=== PATIENT | male | born 1970 ===

== ENCOUNTER 2021-12-12 07:08 | Day surgery (SDC) | payer OTHER ==
[~2021-12-12] VITALS: Ht 162.6 cm; Wt 83.6 kg
[~2021-12-12 07:08] MED LIST: MERIBIN5 MG PO; Propecia1 MG PO
== END 2021-12-12 10:39 | disposition home or self-care (01) ==
LOC: ORSCSDS 07:08
PROVIDERS: Internal Medicine Gastroenterology
PROC: 0DJD8ZZ Inspection of Lower Intestinal Tract, Via Natural or Artificial Opening Endoscopic (ICD-10-PCS; principal; 2021-12-12 08:45)
DX: Z12.11 Encounter for screening for malignant neoplasm of colon (principal); Z86.010 Personal history of colon polyps; K57.50 Diverticulosis of both small and large intestine without perforation or abscess without bleeding; K64.8 Other hemorrhoids; K59.09 Other constipation; Z87.891 Personal history of nicotine dependence; Z79.899 Other long term (current) drug therapy
CPT/HCPCS: J2704; J7120